=== PATIENT | female | born 1955 | race Caucasian/White ===

== ENCOUNTER → 2017-01-01 | Outpatient (CLI) | payer OTHER ==
[~2017-01-01] MED LIST: MULT-506 PO
--- NOTE | 2017-01-01 09:42 | DIAGNOSTIC IMAGING REPORT ---
MRI left ankle LEFT LOWER EXT NON JOINT W/O CLINICAL HISTORY: LEFT FOOT PAIN trauma TECHNIQUE: Multiaxial MRI acquisition COMPARISON STUDY: None FINDINGS: Heterogeneous signal characteristics throughout the major osseous structures. Regional osteochondral defect lateral and central aspect of the distal tibia. These measure approximately 13 and 10 mm expectantly. The overlying articular services remains intact. A slightly linear alteration in signal of the central/medial talus. . This potentially is on the basis of postmenopausal contusion. Subtalar joint appears to be intact. Mild edematous change of the interosseous ligament. Findings of fluid surrounding the bowel bulk of the tendinous structures throughout the ankle and plantar aspect of foot. A generalized nonspecific tenosynovitis must be a consideration. Medial and lateral collateral ligaments appear to be intact. Mild degenerative signal characteristics of the intertarsal joints. IMPRESSION: 1. Findings of bone contusions versus osteochondral defects of the lateral and central aspect of the distal tibia.. 2. Linear foci of altered signal of the central talus raising the possibility of posttraumatic contusion versus stress related reaction. 3. Major ligamentous and tendinous structures appear to be intact, although findings of generalized tenosynovitis throughout all major tendinous structures is felt to be present. 4. All findings are superimposed upon moderate degenerative change of the articular services throughout. Electronically signed by: Demar Segura M.D. 01/01/2017 9:41 AM Dictated Date/Time: 01/01/2017 9:35 AM
== END | disposition home or self-care (01) ==
LOC: C.MRI 08:07
PROVIDERS: ATTEND Podiatrist Foot & Ankle Surgery
DX: M25.572 Pain in left ankle and joints of left foot (principal); M79.672 Pain in left foot; R93.7 Abnormal findings on diagnostic imaging of other parts of musculoskeletal system

== ENCOUNTER → 2018-03-05 | Outpatient (CLI) | payer OTHER | END | disposition home or self-care (01) | LOC: C.PATHSPEC 17:35 | PROVIDERS: ATTEND Plastic Surgery | DX: L90.5 Scar conditions and fibrosis of skin (principal) ==